=== PATIENT | male | born 1950 | race American Indian/Alaskan Native ===

== ENCOUNTER 2020-05-12 14:27 | Emergency (ER) | payer MEDICARE ==
--- NOTE | 2020-05-12 15:10 | Event Note ---
ED Screening Note Date of service: 05/12/20 Time: 15:09 ED Screening Note: 69-year-old male presents emergency department chief complaint of rectal pain. Patient reports similar pain previously that was secondary to a rectal fissure. He also reports he is been having black stools and is unsure if it is from 1 dose of Pepto-Bismol or from GI bleeding. He currently takes Eliquis for A. fib This initial assessment/diagnostic orders/clinical plan/treatment(s) is/are subject to change based on patients health status, clinical progression and re- assessment by fellow clinical providers in the ED. Further treatment and workup at subsequent clinical providers discretion. Patient/guardian urged not to elope from the ED as their condition may be serious if not clinically assessed and managed. Initial orders include: CBC, CMP, PT, PTT, urinalysis, lipase
[2020-05-12 15:52] LABS: Basophils # (Auto) 0.1 K/mm3 (0.0-0.1); Basophils % (Auto) 0.8 % (0.0-1.8); Eosinophils # (Auto) 0.1 K/mm3 (0.0-0.4); Hematocrit 44.7 % (35.5-45.6); Hemoglobin 15.5 gm/dl (11.8-15.2); Lymphocytes # (Auto) 1.8 K/mm3 (1.2-5.4); Lymphocytes % (Auto) 22.6 % (13.4-35.0); Mean Corpuscular HGB Conc 35 % (32-34); Mean Corpuscular Volume 98 fl (84-94); Monocytes # (Auto) 0.5 K/mm3 (0.0-0.8); Monocytes % (Auto) 6.4 % (0.0-7.3); Platelet Count 243 K/mm3 (140-440); Red Blood Count 4.57 M/mm3 (3.65-5.03); Red Cell Distribution Width 13.2 % (13.2-15.2)
[2020-05-12 16:12] LABS: Partial Thromboplastin Time 56.2 Sec. (24.2-36.6)
[2020-05-12 16:15] LABS: INR 2.57 (0.87-1.13)
[2020-05-12 16:25] LABS: Albumin 4.3 g/dL (3.9-5); Calcium 9.7 mg/dL (8.4-10.2)
[2020-05-12 16:41] LABS: Bilirubin,Urine NEG (Negative); Blood,Urine NEG (Negative); Color,Urine Yellow (Yellow); Mucus,Urine FEW /HPF; RBC,Urine < 1.0 /HPF (0.0-6.0); Urobilinogen,Urine < 2.0 mg/dL (<2.0)
[2020-05-12] MEDS ORDERED: LIDOCAINE JELLY (2%) 5 ML TOPICAL TP ONE (16:53)
--- NOTE | 2020-05-12 16:58 | Emergency Department Report ---
HPI - General Chief Complaint: Rectal Pain Time Seen by Provider: 05/12/20 14:59 - HPI HPI: This is a 69-year-old -Chinese male presents to the emergency department with acute on chronic rectal pain. The patient has a history of previous anal fissure. Within the last few days, the patient had a bowel movement in which he says "it tore again." Since then the patient has been having severe rectal pain. He occasionally will have some rectal bleeding with bowel movements. He denies any drainage or leakage from the rectum. He denies any abdominal or pelvic pain, fever, nausea or vomiting. The patient is on tramadol for his chronic rectal pains but this has not been helping with his discomfort. 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 The patient follows with [facility] for his rectal pain issues. He has a primary care physician through the [facility] . ED Past Medical Hx - Past Medical History Previous Medical History?: Yes Hx Hypertension: Yes Hx Asthma: Yes Additional medical history: blood clot "on heart." - Surgical History Additional Surgical History: Sinus surgery. gynocomastia - Social History Smoking Status: Unknown if ever smoked Substance Use Type: None - Medications Home Medications: Home Medications Medication Instructions Recorded Confirmed Last Taken Type Acetaminophen/Codeine [Tylenol #3] 1 tab PO Q6H PRN #12 tab 12/07/15 Unknown Rx Hydrocortisone [Anucort-HC SUPPOS] 25 mg RC BID 14 Days #28 supp.rect 01/15/20 Unknown Rx Naproxen [Naprosyn] 500 mg PO BID #20 tablet 01/15/20 Unknown Rx Docusate Sodium [Colace CAP] 100 mg PO BID #60 capsule 05/12/20 Unknown Rx Hydrocortisone [Anusol-Hc 2.5% TOP 30 gm RC BID #1 tube 05/12/20 Unknown Rx CREAM] ED Review of Systems ROS: Stated complaint: RECTAL BLEEDING Other details as noted in HPI Comment: All other systems reviewed and negative Constitutional: denies: chills, fever Respiratory: denies: shortness of breath Cardiovascular: denies: chest pain Gastrointestinal: other (Rectal pain). denies: abdominal pain, vomiting Genitourinary: denies: dysuria, discharge Musculoskeletal: denies: back pain, arthralgia Physical Exam - Physical Exam Physical Exam: GENERAL: The patient is well-developed well-nourished. HENT: Normocephalic. Atraumatic. Patient has moist mucous membranes. EYES: Extraocular motions are intact. NECK: Supple. Trachea is midline. CHEST/LUNGS: Clear to auscultation. There is no respiratory distress noted. HEART/CARDIOVASCULAR: Regular. There is no tachycardia. ABDOMEN: Abdomen is soft, nontender. Patient has normal bowel sounds. SKIN: Skin is warm and dry. NEURO: The patient is awake, alert, and oriented. The patient is cooperative. Normal speech. MUSCULOSKELETAL: There is no tenderness or deformity. There is no limitation range of motion. RECTAL: No gross blood seen. The patient has multiple small nonthrombosed hemorrhoids, almost circumferentially. There is an anal fissure at the 9 o'clock position. ED Medical Decision Making - Lab Data Result diagrams: 05/12/20 15:31 05/12/20 15:31 - Medical Decision Making This patient presents with a complaint of rectal pain that has been going on for the past few months but worsened recently after a bowel movement. On examination the patient has multiple small nonthrombosed external hemorrhoids and has an anal fissure. There is no bleeding or any discharge seen on examination. No areas of fluctuance. The patient does not have any back or abdominal pain. Vital signs have been reassuring throughout his ED course including being afebrile. The patient was given a dose of topical lidocaine for his rectal pain. He will be placed on Colace and Anusol. He already has good outpatient follow-up with primary care and gastroenterology. Critical Care Time: No Critical care attestation.: If time is entered above; I have spent that time in minutes in the direct care of this critically ill patient, excluding procedure time. 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 Make sure that you stay hydrated. Your labs show some mild decreased kidney function. I am giving you a referral for a local projects manager, Dr. Marc. Please avoid taking any NSAIDs such as Aleve, Advil, ibuprofen, Naprosyn, naproxen, until follow-up with the projects manager. Take the medications as prescribed. Return to the emergency department with any worsening of your symptoms, new or concerning symptoms not addressed during this current emergency department visit, or with any acute distress. Prescriptions: Hydrocortisone [Anusol-Hc 2.5% TOP CREAM] 30 gm RC BID #1 tube Docusate Sodium [Colace CAP] 100 mg PO BID #60 capsule Referrals: [facility] [Provider Group] - 2-3 Days VERONICA MARC MD [Staff Physician] - 3-5 Days Time of Disposition: 17:18
[2020-05-12 17:01] VITALS: BP 121/73
== END 2020-05-12 17:25 | disposition home or self-care (01) ==
LOC: ED 14:27
DX: N28.9 Disorder of kidney and ureter, unspecified (principal); K64.4 Residual hemorrhoidal skin tags; K60.2 Anal fissure, unspecified; I10 Essential (primary) hypertension; J45.909 Unspecified asthma, uncomplicated; Z98.890 Other specified postprocedural states; Z79.899 Other long term (current) drug therapy
CPT/HCPCS: 36415; 80053; 81001; 83690; 85025; 85610; 85730